=== PATIENT | male | born 2000 | race Two or more races ===

== ENCOUNTER 2023-09-04 02:38 | Emergency (ER) | payer OTHER ==
[~2023-09-04] VITALS: Ht 188 cm; Wt 117.9 kg
[2023-09-04 02:51] VITALS: BP 135/79; PULSE 80; RESP 18; TEMP 98.3; O2SAT 97
[2023-09-04] MEDS ORDERED: ZOFRAN IV STA (02:59)
[2023-09-04] MEDS ORDERED: NS 1000ML 1,000 ML IV STA (02:59)
[2023-09-04] MEDS ORDERED: NS 1000ML 1,000 ML ONE (03:01)
[2023-09-04] MEDS ORDERED: ZOFRAN ONE (03:01)
[2023-09-04 03:09] LABS: BASOPHIL % 0.2 % (0.0-0.2); EOSINOPHIL % 0.7 % (0.0-5.0); HEMATOCRIT(ML) 42.4 % (37.0-53.0); HEMOGLOBIN 15.2 g/dL (13.9-16.3); LYMPHOCYTES # 1.67 10^3/uL1 (1.0-4.8); LYMPHOCYTES % 38.9 % (24.0-44.0); MEAN CORP HGB 32.5 pg (26-34); MEAN CORP HGB CONCENTRATION 35.8 g/dL (33-36.5); MEAN CORP VOLUME 90.6 fL (78-100); MONOCYTES # 0.3 10^3/uL (0.3-0.8); MONOCYTES % 7.5 % (5.0-12.0); NEUTROPHIL # 2.2 10^3/uL (1.8-7.7); NEUTROPHILS % 52.2 % (41.0-85.0); PLATELET COUNT 290 10^3/uL (150-400); RED BLOOD CELL 4.68 10^6/uL (4.50-5.90); RED CELL DISTRIBUTION WIDTH 12.4 % (11.5-14.5); WHITE BLOOD CELL 4.3 10^3/uL (4.5-11.0)
[2023-09-04 03:11] LABS: +ADD MANUAL DIFF(NO CHRG) NO
[2023-09-04 03:20] LABS: ALANINE AMINOTRANSFERASE(ML) 81 U/L (12-78); ALBUMIN(ML) 4.5 g/dL (3.4-5.0); ALKALINE PHOSPHATASE 86 U/L (50-136); ANION GAP 15.1; ASPARTATE AMINO TRANSFERASE 32 U/L (0-35); CALCIUM 9.2 mg/dL (8.4-10.5); EST GFR, NON-AA 81.6 (>/=60); GLUCOSE 136 mg/dL (74-106); POTASSIUM 3.1 mmol/L (3.6-5.2); SODIUM 139 mmol/L (132-145)
[2023-09-04 03:22] LABS: ACETAMINOPHEN(ML) < 2 ug/mL (10-30); SALICYLATE(ML) < 2.8 mg/dL (2.8-20.0)
[2023-09-04 03:43] VITALS: BP 132/84; PULSE 81; RESP 18; TEMP 98.3; O2SAT 97
[2023-09-04 04:05] VITALS: BP 108/50; PULSE 96; RESP 18; TEMP 98.3; O2SAT 97
== END 2023-09-04 04:07 | disposition home or self-care (01) ==
LOC: ER 02:38
DX: F10.229 Alcohol dependence with intoxication, unspecified (principal); Z88.0 Allergy status to penicillin
CPT/HCPCS: 99285; 96374; 70450; 71045; 96361; 80053; 85025; 36415; 80299 ×2; 82077; 93005; J7030; J2405; 80307